=== PATIENT | male | born 1940 | race Caucasian/White ===

== ENCOUNTER → 2016-10-24 | Outpatient (CLI) | payer MEDICARE ==
--- NOTE | 2016-10-25 07:30 | XR ---
EXAMINATION TYPE: XR foot complete RT DATE OF EXAM: 10/24/2016 11:29 AM CLINICAL HISTORY: pain TECHNIQUE: Frontal, lateral and oblique images of the right foot are obtained. COMPARISON: None. FINDINGS: There is no acute fracture/dislocation evident. The joint spaces appear within normal funez its. There is evidence of dorsal soft tissue swelling. IMPRESSION: There is no acute fracture or dislocation. ICD 10 NO FRACTURE, INITIAL EVALUATION
== END | disposition home or self-care (01) ==
LOC: RADXRYALE 10:18
PROVIDERS: ATTEND Family Medicine
DX: S91.331A Puncture wound without foreign body, right foot, initial encounter (principal)

== ENCOUNTER → 2017-06-26 | Outpatient (CLI) | payer MEDICARE ==
--- NOTE | 2017-06-26 16:14 | XR ---
EXAMINATION TYPE: XR ribs RT w pa chest x-ray DATE OF EXAM: 06/26/2017 CLINICAL HISTORY: Chest and right-sided rib pain after injury. TECHNIQUE: Single frontal view of the chest is obtained. A frontal and oblique images of the right-si ded ribs are obtained. COMPARISON: Chest x-ray February 10, 2015 FINDINGS: There is chronic parenchymal change without suspicious focal air space opacity, pleural ef fusion, or pneumothorax seen. The cardiac silhouette size remains within normal limits with atherosc lerotic change in aortic knob. Anterior fusion plate lower cervical spine and cervical cage are parti ally imaged. Dedicated images of right-sided ribs show no acute displaced right-sided rib fracture. Overlying soft tissue is unremarkable. IMPRESSION: 1. Chronic parenchymal changes without acute pulmonary process. 2. No acute displaced right-sided rib fractures are evident.
== END ==
LOC: RADXRYALE 15:55
PROVIDERS: ATTEND Family Medicine
DX: S23.41XA Sprain of ribs, initial encounter (principal)

== ENCOUNTER → 2019-03-17 | Outpatient (CLI) | payer MEDICARE ==
--- NOTE | 2019-03-17 11:28 | XR ---
EXAMINATION TYPE: XR lumbosacral spine min 4V DATE OF EXAM: 03/17/2019 COMPARISON: 02/15/2012 HISTORY: 79-year-old male low back pain TECHNIQUE: 5 views FINDINGS: Hypertrophic facet arthropathy mid to lower lumbar spine. No pars interarticularis defect. Dense atherosclerotic calcification throughout the aorta. 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 Vertebral body heights are preserved and alignment is maintained. Mild to moderate endplate spondylos is throughout. IMPRESSION: 1. Dense atherosclerotic aortic calcifications. 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 2. Hypertrophic facet arthropathy. No vertebral compression collapse or malalignment. 3. Mild to moderate endplate spondylosis throughout.
== END | disposition home or self-care (01) ==
LOC: RADXRYALE 10:47
PROVIDERS: ATTEND Physician Assistant Medical
DX: M47.817 Spondylosis without myelopathy or radiculopathy, lumbosacral region (principal); M46.97 Unspecified inflammatory spondylopathy, lumbosacral region
CPT/HCPCS: 72110

== ENCOUNTER 2020-03-03 16:22 | Emergency (ER) | payer MEDICARE ==
[2020-03-03 16:28] VITALS: RESP 18; TEMP 97.7
[2020-03-03 17:07] LABS: Basophils % (A) 1 %; Eosinophils # (A) 0.1 k/uL (0-0.7); Eosinophils % (A) 2 %; HCT 42.6 % (39.0-53.0); HGB 13.6 gm/dL (13.0-17.5); Lymphocytes # (A) 1.1 k/uL (1.0-4.8); Lymphocytes % (A) 25 %; MCH 25.6 pg (25.0-35.0); MCV 80.1 fL (80.0-100.0); Mean Platelet Volume 9.4; Monocytes # (A) 0.4 k/uL (0-1.0); Monocytes % (A) 9 %; Neutrophils # (A) 2.6 k/uL (1.3-7.7); Neutrophils % (A) 61 %; Platelet Count 138 k/uL (150-450); RBC 5.32 m/uL (4.30-5.90); RDW 14.8 % (11.5-15.5); WBC 4.2 k/uL (3.8-10.6)
[2020-03-03 17:18] LABS: Albumin 4.3 g/dL (3.5-5.0); Calcium 9.3 mg/dL (8.4-10.2); INR 1.1 (<1.2); Magnesium 2.3 mg/dL (1.6-2.3); Partial Thromboplastin Time 25.9 sec (22.0-30.0); Potassium 4.9 mmol/L (3.5-5.1); Prothrombin Time 11.2 sec (9.0-12.0); Total Bilirubin 0.8 mg/dL (0.2-1.3); Total Protein 7.1 g/dL (6.3-8.2)
--- NOTE | 2020-03-03 17:27 | XR ---
EXAMINATION TYPE: XR chest 2V DATE OF EXAM: 03/03/2020 COMPARISON: Chest x-ray June 26, 2017 HISTORY: Chest pain and palpitations for 2 days TECHNIQUE: Frontal and lateral views of the chest are obtained. FINDINGS: There is chronic parenchymal changes bilaterally without suspicious focal air space opacit y, pleural effusion, or pneumothorax seen. The cardiac silhouette size is mildly enlarged on current study with atherosclerotic thoracic aorta. Partial visualization of surgical change in the cervical spine noted.. IMPRESSION: Chronic parenchymal changes and cardiomegaly without acute pulmonary process.
[2020-03-03] MEDS ORDERED: NITROGLYCERIN SL TABS 0.4 MG TAB SUBLINGUAL STA (17:48)
--- NOTE | 2020-03-03 18:44 | ED ---
Chest Pain HPI - General Chief Complaint: Chest Pain Stated Complaint: chest pain Time Seen by Provider: 03/03/20 16:38 Source: patient Mode of arrival: wheelchair Limitations: no limitations - History of Present Illness Initial Comments: The patient is a 80-year-old male with past nuchal history of coronary artery disease, hyperlipidemia and hypertension presents emergency Department with reported chest pain. Reports that the pain has been present for the past 2 days. It is not reproducible over the left side of the chest without radiation. Denies provocative factors. Mild associated shortness of breath. No nausea or diaphoresis. Patient reports that his last cath was 6 years ago[address] He sees Dr. Valdez in office. Has a history of A. fib for which she is on Eliquis. Denies missing any doses of his medication. Denies pleuritic chest pain. No ripping or tearing sensation to his back. No fevers, chills or cough. She did not take any medications for his symptoms prior to coming into the emergency room. There are no alleviating, precipitating or modifying factors - Related Data Home Medications Medication Instructions Recorded Confirmed Nitroglycerin Sl Tabs [Nitrostat] 0.4 mg SL Q5M PRN 04/08/14 09/06/15 levETIRAcetam [Keppra] 750 mg PO BID 04/08/14 09/03/15 HYDROcodone/APAP 7.5-325MG [[place] 1 each PO Q6HR PRN 04/09/14 09/03/15 7.5-325] Metoprolol Tartrate [Lopressor] 25 mg PO BID 04/09/14 09/03/15 Eszopiclone [Lunesta] 2 mg PO HS 09/03/15 09/03/15 Sulfamethox-Tmp 800-160Mg [Bactrim 1 tab PO BID 09/03/15 09/03/15 DS 800-160 mg] Previous Rx's Medication Instructions Recorded Apixaban [Eliquis] 5 mg PO BID #1 tab 02/12/15 Atorvastatin Calcium [Lipitor] 40 mg PO HS #30 tab 02/12/15 Amoxicillin/Potassium Clav 1 each PO Q12HR #20 tab 08/31/15 [Augmentin 875-125 Tablet] HYDROcodone/APAP 7.5-325MG [[place] 1 each PO Q4H PRN #60 tab 09/06/15 7.5] Allergies Allergy/AdvReac Type Severity Reaction Status Date / Time lorazepam [From Ativan] Allergy Confusion Verified 03/03/20 16:28 hydromorphone HCl AdvReac Nausea & Verified 03/03/20 16:28 [From Dilaudid] Vomiting Review of Systems ROS Statement: Those systems with pertinent positive or pertinent negative responses have been documented in the HPI. ROS Other: All systems not noted in ROS Statement are negative. EKG Findings - EKG Comments: EKG Findings:: EKG demonstrates A. fib with a rate of 75. QRS 72. QTC of 426. No acute ST segment elevations or depressions concern for ischemic changes Past Medical History Past Medical History: Coronary Artery Disease (CAD), Hyperlipidemia, Hypertension, Memory Impairment, Myocardial Infarction ([place]), Neurologic Disorder, Seizure Disorder Additional Past Medical History / Comment(s): LAST SEIZURE COUPLE MONTHS AGO, RIGHT GROIN HERNIA, CELLULITIS Last Myocardial Infarction Date:: 2010 History of Any Multi-Drug Resistant Organisms: None Reported Past Surgical History: Appendectomy, Heart Catheterization With Stent Additional Past Surgical History / Comment(s): cervical disc replacement, Past Anesthesia/Blood Transfusion Reactions: No Reported Reaction Date of Last Stent Placement:: 2010 Past Psychological History: No Psychological Hx Reported Smoking Status: Former smoker Past Alcohol Use History: None Reported Past Drug Use History: None Reported - Past Family History Father Family Medical History: Coronary Artery Disease (CAD) General Exam Limitations: no limitations Course Vital Signs 03/03/20 03/03/20 03/03/20 16:26 17:53 19:17 Temperature 97.7 F Pulse Rate 74 77 70 Respiratory 18 18 18 Rate Blood Pressure 157/79 165/92 167/85 O2 Sat by Pulse 98 99 99 Oximetry Chest Pain MDM - MDM Upon return of the patient was placed into room 7. A thorough history and physical exam was performed. 12-lead EKG was performed which demonstrates no acute ST segment elevation. Peripheral IV was established. Laboratory studies were conducted. Patient went for chest x-ray. Labs are remarkable for c reatinine 1.6 which is from the patient's baseline. Troponin is negative. BNP is 1230. Chest x-ray demonstrates chronic parenchymal changes with cardiomegaly. The patient was given a sublingual nitro. Reports improvement in his symptoms. I hospital admission for which patient did refuse. I discuss the diagnosis, differential and treatment options. The bleeding including permanent disability and were discussed with the patient. The patient is of sound mind and capable of making his own decisions. is at bedside and agrees with his decision to leave. I informed him and he said call his her care physician in follow-up in office. He should also see Dr. Valdez within the next week. Return to the emergency room and should he agree for further evaluation. The patient understood this and left in stable condition Disposition Clinical Impression: Chest pain Disposition: HOME SELF-CARE Condition: Stable Instructions (If sedation given, give patient instructions): Chest Pain (ED) Additional Instructions: I recommended hospital admission. You understand that leaving the hospital could result in permanent disability and even . I do recommend that you follow up with your dental floss packer. Call tomorrow to make an appointment. Return to the hospital should you have any new or worsening symptoms or agree to hospitalization. Is patient prescribed a controlled substance at d/c from ED?: No Referrals: Faisal Anaya DO [Primary Care Provider] - 1-2 days Alejandrina Valdez MD [STAFF PHYSICIAN] - 1-2 days Time of Disposition: 18:54
[2020-03-03 19:18] VITALS: BP 167/85; PULSE 70
== END 2020-03-03 19:17 | disposition home or self-care (01) ==
LOC: EC 16:22
DX: R07.9 Chest pain, unspecified (principal); R06.02 Shortness of breath; I11.9 Hypertensive heart disease without heart failure; I25.10 Atherosclerotic heart disease of native coronary artery without angina pectoris; G40.909 Epilepsy, unspecified, not intractable, without status epilepticus; I25.2 Old myocardial infarction; Z79.899 Other long term (current) drug therapy; Z88.5 Allergy status to narcotic agent; Z88.8 Allergy status to other drugs, medicaments and biological substances; Z95.5 Presence of coronary angioplasty implant and graft; Z87.891 Personal history of nicotine dependence
CPT/HCPCS: 36415; 71046; 80053; 83690; 83735; 83880; 84484; 85025; 85610; 85730; 93005; 99285

== ENCOUNTER 2021-01-19 17:57 | Inpatient (IN) | payer MEDICARE ==
--- NOTE | 2021-01-19 19:52 | ED ---
General Adult HPI - General Chief complaint: Extremity Problem,Nontraumatic Stated complaint: +DVT Time Seen by Provider: 01/19/21 19:14 Source: patient Mode of arrival: wheelchair Limitations: no limitations - History of Present Illness Initial comments: Dictation was produced using [employer] dictation software. please excuse any grammatical, word or spelling errors. This patient was cared for during a federal and state declared state of emergenc y secondary to Covid 19 Chief Complaint: 80-year-old male presents to the emergency department for abnormal ultrasound History of Present Illness: 80-year-old male who presents to the emergency department after he had an abnormal ultrasound. Patient is 80-year-old male he has past medical history of atrial fibrillation. Does take eliquis. States he is compliant with this medication. The last 2 weeks she's been complaining of bilateral calf pain. Denies any trauma to the area. So for stroke several years ago that made it difficult for him to ambulate. He went to see his prima care doctor who ordered a bilateral lower extremity venous Doppler study. Ultrasounds were positive for bilateral lower extremity DVTs. He was told to come to the emergency department. Patient denies any chest pain or shortness of breath. Denies any exertional dyspnea. He states that all of his pain is located to his bilateral calf areas. The ROS documented in this emergency department record has been reviewed and confirmed by me. Those systems with pertinent positive or negative responses have been documented in the HPI. All other systems are other negative and/or noncontributory. PHYSICAL EXAM: General Impression: Alert and oriented x3, not in acute distress HEENT: Normocephalic atraumatic, extra-ocular movements intact, pupils equal and reactive to light bilaterally, mucous membranes moist. Cardiovascular: Heart regular rate and rhythm Chest: Able to complete full sentences, no retractions, no tachypnea Abdomen: abdomen soft, non-tender, non-distended, no organomegaly Musculoskeletal: Pulses present and equal in all extremities, no peripheral edema Lower extremity: Some equal in girth however there is bilateral calf and popliteal palpatory tenderness Motor: no focal deficits noted Neurological: CN II-XII grossly intact, no focal motor or sensory deficits noted Skin: Intact with no visualized rashes Psych: Normal affect and mood ED course: 80-year-old male presents with bilateral lower extremities DVTs. Vital signs upon arrival are within acceptable limits. Patient is not tachycardic and not hypoxic. He does not show any signs of respiratory distress. Patient denies any respiratory symptoms or chest symptoms. No concern clinically for pulmonary embolism. Patient venous Doppler studies were reviewed. Does have bilateral lower she may DVTs. Patient states he is taking apixiban and is compliant with his medication. Clinical presentation consistent with breakthrough DVTs Laboratory evaluations were obtained. CBC, coag panel is unremarkable. Metabolic panel shows elevated renal markers which appear to be slightly on the higher end of patient's baseline. Radiology interpretation of the ultrasounds were reviewed. Given that patient is having breakthrough DVT formation despite being on anticoagulation we'll have patient admitted for hematology consultation. Case is discussed with Izabel Gallagher was went except patient's Behalf of [facility] hospitalist group. Hematology will be consulted. In the meantime patient is started on high-dose heparin. - Related Data Home Medications Medication Instructions Recorded Confirmed Nitroglycerin Sl Tabs [Nitrostat] 0.4 mg SL Q5M PRN 04/08/14 09/06/15 levETIRAcetam [Keppra] 750 mg PO BID 04/08/14 09/03/15 HYDROcodone/APAP 7.5-325MG [[place] 1 each PO Q6HR PRN 04/09/14 09/03/15 7.5-325] Metoprolol Tartrate [Lopressor] 25 mg PO BID 04/09/14 09/03/15 Eszopiclone [Lunesta] 2 mg PO HS 09/03/15 09/03/15 Sulfamethox-Tmp 800-160Mg [Bactrim 1 tab PO BID 09/03/15 09/03/15 DS 800-160 mg] Previous Rx's Medication Instructions Recorded Apixaban [Eliquis] 5 mg PO BID #1 tab 02/12/15 Atorvastatin Calcium [Lipitor] 40 mg PO HS #30 tab 02/12/15 Amoxicillin/Potassium Clav 1 each PO Q12HR #20 tab 08/31/15 [Augmentin 875-125 Tablet] HYDROcodone/APAP 7.5-325MG [[place] 1 each PO Q4H PRN #60 tab 09/06/15 7.5] Allergies Allergy/AdvReac Type Severity Reaction Status Date / Time lorazepam [From Ativan] Allergy Confusion Verified 01/19/21 18:30 hydromorphone HCl AdvReac Nausea & Verified 01/19/21 18:30 [From Dilaudid] Vomiting Review of Systems ROS Statement: Those systems with pertinent positive or pertinent negative responses have been documented in the HPI. ROS Other: All systems not noted in ROS Statement are negative. Past Medical History Past Medical History: Coronary Artery Disease (CAD), CVA/TIA, Hyperlipidemia, Hy pertension, Memory Impairment, Myocardial Infarction ([place]), Neurologic Disorder, Seizure Disorder Additional Past Medical History / Comment(s): LAST SEIZURE COUPLE MONTHS AGO, RIGHT GROIN HERNIA, CELLULITIS Last Myocardial Infarction Date:: 2010 History of Any Multi-Drug Resistant Organisms: None Reported Past Surgical History: Appendectomy, Heart Catheterization With Stent Additional Past Surgical History / Comment(s): cervical disc replacement, Past Anesthesia/Blood Transfusion Reactions: No Reported Reaction Date of Last Stent Placement:: 2010 Past Psychological History: No Psychological Hx Reported Smoking Status: Never smoker Past Alcohol Use History: None Reported Past Drug Use History: None Reported - Past Family History Father Family Medical History: Coronary Artery Disease (CAD) General Exam Limitations: no limitations Course Vital Signs 01/19/21 18:26 Temperature 98.1 F Pulse Rate 85 Respiratory 18 Rate Blood Pressure 141/77 O2 Sat by Pulse 96 Oximetry Medical Decision Making - Lab Data Result diagrams: 01/19/21 20:02 01/19/21 20:02 Lab Results 01/19/21 01/19/21 01/19/21 Range/Units 20:02 20:02 20:02 WBC 5.9 (3.8-10.6) k/uL RBC 5.05 (4.30-5.90) m/uL Hgb 13.5 (13.0-17.5) gm/dL Hct 39.9 (39.0-53.0) % MCV 79.0 L (80.0-100.0) fL MCH 26.8 (25.0-35.0) pg MCHC 33.9 (31.0-37.0) g/dL RDW 13.8 (11.5-15.5) % Plt Count 178 (150-450) k/uL MPV 9.9 Neutrophils % 72 % Lymphocytes % 15 % Monocytes % 9 % Eosinophils % 1 % Basophils % 1 % Neutrophils # 4.3 (1.3-7.7) k/uL Lymphocytes # 0.9 L (1.0-4.8) k/uL Monocytes # 0.6 (0-1.0) k/uL Eosinophils # 0.1 (0-0.7) k/uL Basophils # 0.0 (0-0.2) k/uL PT 11.1 (9.0-12.0) sec INR 1.0 (<1.2) APTT 23.7 (22.0-30.0) sec Sodium 136 L (137-145) mmol/L Potassium 5.0 (3.5-5.1) mmol/L Chloride 101 (98-107) mmol/L Carbon Dioxide 28 (22-30) mmol/L Anion Gap 7 mmol/L BUN 31 H (9-20) mg/dL Creatinine 1.95 H (0.66-1.25) mg/dL Est GFR (CKD-EPI)AfAm 37 (>60 ml/min/1.73 sqM) Est GFR (CKD-EPI)NonAf 32 (>60 ml/min/1.73 sqM) Glucose 134 H (74-99) mg/dL Calcium 9.6 (8.4-10.2) mg/dL Disposition Clinical Impression: DVT (deep venous thrombosis) Disposition: ADMITTED IP TO THIS HOSP Condition: Fair Referrals: Faisal Anaya DO [Primary Care Provider] - 1-2 days Decision Time: 21:04
[2021-01-19 20:15] LABS: Basophils % (A) 1 %; Eosinophils # (A) 0.1 k/uL (0-0.7); Eosinophils % (A) 1 %; HCT 39.9 % (39.0-53.0); HGB 13.5 gm/dL (13.0-17.5); Lymphocytes # (A) 0.9 k/uL (1.0-4.8); Lymphocytes % (A) 15 %; MCH 26.8 pg (25.0-35.0); MCHC 33.9 g/dL (31.0-37.0); Mean Platelet Volume 9.9; Monocytes # (A) 0.6 k/uL (0-1.0); Monocytes % (A) 9 %; Neutrophils # (A) 4.3 k/uL (1.3-7.7); Neutrophils % (A) 72 %; Platelet Count 178 k/uL (150-450); RBC 5.05 m/uL (4.30-5.90); RDW 13.8 % (11.5-15.5); WBC 5.9 k/uL (3.8-10.6)
[2021-01-19 20:26] LABS: Calcium 9.6 mg/dL (8.4-10.2)
[2021-01-19 20:34] LABS: Partial Thromboplastin Time 23.7 sec (22.0-30.0); Prothrombin Time 11.1 sec (9.0-12.0)
[2021-01-19] MEDS ORDERED: HEPARIN SODIUM 1,000 UN/ML (10ML VL) IV ONE (20:47)
[2021-01-19] MEDS ORDERED: HEPARIN SODIUM 1,000 UN/ML (10ML VL) IV PRN (20:47)
[2021-01-19] MEDS ORDERED: NALOXONE 0.4 MG/ML 1 ML VIAL IV PRN (20:56)
[2021-01-19] MEDS ORDERED: ACETAMINOPHEN TAB 325 MG TAB PO PRN (20:56)
[2021-01-19] MEDS ORDERED: HYDROcodone/APAP 5-325MG 1 EACH TAB PO PRN (21:05)
[2021-01-19] MEDS: HEPARIN SOD,PORK IN 0.45% NACL 25,000 UNIT in 0.45% NACL 1 250ML.BAG IV SCH (21:13)
[2021-01-20] MEDS ORDERED: traMADol 50 MG TAB PO PRN (10:19)
[2021-01-20] MEDS: METOPROLOL TARTRATE 25 MG TAB PO SCH ×2 (10:34→21:38)
[2021-01-20] MEDS: HEPARIN SOD,PORK IN 0.45% NACL 25,000 UNIT in 0.45% NACL 1 250ML.BAG IV SCH (13:32)
--- NOTE | 2021-01-20 14:38 | P.CONS ---
History of Present Illness - Reason for Consult Consult date: 01/20/21 DVT Requesting physician: Jose Luis Celaya - Chief Complaint Abnormal Ultrasound - History of Present Illness Mr. Champagne is a 80 year old male who has a known history of atrial fib and maintained on Eliquis. He confirms compliance with this medication. He was sent to emergency for further evaluation after a venous doppler revealed bilateral lower extremity DVTs. COVID-19 positive. Heparin Drip has been started. Trending of his renal function he appears to have some chronic kidney disease and his baseline creatinine of around 1.6. Creatinine clearance is greater than 30, likely need to remain on anticoagulation (failure to DOAC), most likely result with use of lovenox. 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 I spoke to Charley this afternoon and she confirmed Eliquis 5mg BID was his home dosage. Patient and his state he was taking daily, however Charley states she has been lo oking for the pill bottle at their house and has not been able to find it and neither her mother or father know where it is, thereforefore potential he has been nonintentionally missing this at home. He did receive the vaccination one Pfzeizer on 12/19/20 and was due for second next week, however now having positive COVID infection he has been advised to hold off on receiving that. After further discussion with patients daughter, she could not find the patients eliquis pills he stated he was taking daily, she called [facility] and [facility] confirmed this was last filled August (3 month supply) and was not refilled in November due to insufficient payment, therefore the patient was likely NOT taking eliquis at home and may resume on eliquis at discharge Review of Systems All systems: negative Constitutional: Reports as per HPI Past Medical History Past Medical History: Atrial Fibrillation, Coronary Artery Disease (CAD), CVA/TIA, Hyperlipidemia, Hypertension, Memory Impairment, Myocardial Infarction ([place]), Neurologic Disorder, Seizure Disorder Additional Past Medical History / Comment(s): LAST SEIZURE 2018, RIGHT GROIN HERNIA, CELLULITIS Last Myocardial Infarction Date:: 2010 History of Any Multi-Drug Resistant Organisms: None Reported Past Surgical History: Appendectomy, Heart Catheterization With Stent Additional Past Surgical History / Comment(s): cervical disc replacement Past Anesthesia/Blood Transfusion Reactions: No Reported Reaction Date of Last Stent Placement:: 2010 Past Psychological History: No Psychological Hx Reported Smoking Status: Never smoker Past Alcohol Use History: None Reported Past Drug Use History: None Reported - Past Family History Father Family Medical History: Coronary Artery Disease (CAD) Medications and Allergies Home Medications Medication Instructions Recorded Confirmed Type Nitroglycerin Sl Tabs [Nitrostat] 0.4 mg SL Q5M PRN 04/08/14 01/20/21 History levETIRAcetam [Keppra] 750 mg PO BID 04/08/14 01/20/21 History Apixaban [Eliquis] 5 mg PO BID #1 tab 02/12/15 01/20/21 Rx Atorvastatin Calcium [Lipitor] 20 mg PO HS 01/19/21 01/20/21 History Metoprolol Tartrate [Lopressor] 25 mg PO BID 01/19/21 01/20/21 History QUEtiapine [SEROquel] 100 mg PO HS 01/19/21 01/20/21 History Tamsulosin HCl [Flomax] 0.8 mg PO HS 01/19/21 01/20/21 History amLODIPine [Norvasc] 5 mg PO DAILY 01/19/21 01/20/21 History traMADol HCL [Ultram] 50 mg PO TID PRN 01/19/21 01/20/21 History Allergies Allergy/AdvReac Type Severity Reaction Status Date / Time lorazepam [From Ativan] Allergy Confusion Verified 01/19/21 21:13 hydromorphone HCl AdvReac Nausea & Verified 01/19/21 21:13 [From Dilaudid] Vomiting Physical Exam Vitals: Vital Signs Temp Pulse Resp BP Pulse Ox 01/20/21 07:55 18 01/20/21 06:51 98 F 74 18 170/76 99 01/19/21 22:09 18 01/19/21 21:38 97.9 F 82 18 168/83 97 01/19/21 18:26 98.1 F 85 18 141/77 96 Intake and Output 01/19/21 01/20/21 01/20/21 22:59 06:59 14:59 Intake Total 110.918 Balance 110.918 Intake: Intake, IV Titration 110.918 Amount Heparin Sod,Pork in 0.45% 110.918 NaCl 25,000 unit In 0.45 % NaCl 1 250ml.bag @ 18 UNITS/KG/HR 15.513 mls/hr IV .Q16H7M [facility] Rx#: [id number] Other: Weight 86.183 kg 86.183 kg - Constitutional Expressive Aphasia - EENT Eyes: EOMI ENT: hard of hearing, NA/AT - Neck Neck: normal ROM - Respiratory Respiratory: bilateral: CTA - Cardiovascular Rhythm: irregularly irregular leg Peripheral Edema: bilateral: 2+ - Gastrointestinal General gastrointestinal: soft - Integumentary Integumentary: pale - Musculoskeletal Musculoskeletal: generalized weakness - Psychiatric History of CVA with chronic deficits Results CBC & Chem 7: 01/19/21 20:02 01/19/21 20:02 Labs: Abnormal Lab Results - Last 24 Hours (Table) 01/19/21 01/19/21 01/19/21 Range/Units 20:02 20:02 21:33 MCV 79.0 L (80.0-100.0) fL Lymphocytes # 0.9 L (1.0-4.8) k/uL APTT (22.0-30.0) sec Sodium 136 L (137-145) mmol/L BUN 31 H (9-20) mg/dL Creatinine 1.95 H (0.66-1.25) mg/dL Glucose 134 H (74-99) mg/dL Coronavirus (PCR) Detected A (Not Detectd) 01/20/21 Range/Units 03:30 MCV (80.0-100.0) fL Lymphocytes # (1.0-4.8) k/uL APTT 118.1 H* (22.0-30.0) sec Sodium (137-145) mmol/L BUN (9-20) mg/dL Creatinine (0.66-1.25) mg/dL Glucose (74-99) mg/dL Coronavirus (PCR) (Not Detectd) Venous US: report reviewed Assessment and Plan Plan: Assessment and Recommendations: Acute BLE DVTs: - Apparently while on Eliquis 5mg BID and while compliant to this at home, After further discussion with patients daughter, she could not find the patients eliquis pills he stated he was taking daily, she called [facility] and [facility] confirmed this was last filled August (3 month supply) and was not refilled in November due to insufficient payment, therefore the patient was likely NOT taking eliquis at home and may resume on eliquis at discharge - Heparin drip for now and restart Eliquis nd confirm prescription in hand prior to discharge Physician Attest: I have completed the full history and physical and agree with above dictation, dictated as a ascribe.
[2021-01-20] MEDS ORDERED: ATORVASTATIN 20 MG TAB PO SCH (21:00)
[2021-01-20] MEDS ORDERED: TAMSULOSIN 0.4 MG CAP.ER.24H PO SCH (21:00)
[2021-01-20] MEDS ORDERED: QUEtiapine 100 MG TAB PO SCH (21:00)
--- NOTE | 2021-01-20 22:27 | P.HPIM ---
History of Present Illness H&P Date: 01/20/21 Chief Complaint: Lower extremity DVTs/abnormal ultrasound Patient is a 80-year-old male with a known history of proximal atrial fibrillation on anticoagulation with Eliquis, coronary artery disease with history of stent placement, history of CVA/TIA with expressive aphasia, hypertension, hyperlipidemia, memory impairment, history of RI, history of seizure disorder was sent to hospital due to abdominal lower extremity venous duplex scan showed bilateral DVTs. Patient does take Eliquis and is compliant with his medications. Patient states that he has been having bilateral calf pain for the past 2 weeks. Denies any trauma.. Patient was seen by his primary care physician and bilateral lower extremity duplex ultrasound was ordered. Which is positive for bilateral lower extremity DVTs. Patient was sent to hospital for evaluation. Otherwise patient denied any complaints of chest pain. No complaints of shortness of breath. Patient received [employer] COVID-19 vaccination first dose on 12/19/2020 and is due for second dose. Patient is positive for COVID-19 PCR on 01/19/2021 Laboratory data showed WBC 5.9 hemoglobin 13.5 MCV 79.0 and platelets 178 sodium 136 potassium 5.0 BUN 31 and creatinine 1.95 Patient was started heparin drip. Review of Systems Constitutional: Patient denies any fever or chills . No generalized weakness or weight loss. Abdomen: Patient denied nausea vomiting and diarrhea and abdominal pain. Cardiovascular: Patient denies any chest pain or short of breath no palpitations. Respiratory: patient denied any cough or sputum production. No shortness of breath Neurologic: Patient denied any numbness or tingling headache. Musculoskeletal: Patient denies any complaints of joint swelling or deformity. Bilateral lower extremity calf pain Skin: Negative Psychiatric: Negative Endocrine: No heat or cold intolerance. No recent weight gain. Genitourinary: No dysuria or hematuria. All other 14 point ROS negative except the above Past Medical History Past Medical History: Atrial Fibrillation, Coronary Artery Disease (CAD), CVA/TIA, Hyperlipidemia, Hypertension, Memory Impairment, Myocardial Infarction (RI), Neurologic Disorder, Seizure Disorder Additional Past Medical History / Comment(s): LAST SEIZURE 2019, RIGHT GROIN HERNIA, CELLULITIS Last Myocardial Infarction Date:: 2010 History of Any Multi-Drug Resistant Organisms: None Reported Past Surgical History: Appendectomy, Heart Catheterization With Stent Additional Past Surgical History / Comment(s): cervical disc replacement Past Anesthesia/Blood Transfusion Reactions: No Reported Reaction Date of Last Stent Placement:: 2010 Past Psychological History: No Psychological Hx Reported Smoking Status: Never smoker Past Alcohol Use History: None Reported Past Drug Use History: None Reported - Past Family History Father Family Medical History: Coronary Artery Disease (CAD) Medications and Allergies Home Medications Medication Instructions Recorded Confirmed Type Nitroglycerin Sl Tabs [Nitrostat] 0.4 mg SL Q5M PRN 04/08/14 01/20/21 History levETIRAcetam [Keppra] 750 mg PO BID 04/08/14 01/20/21 History Apixaban [Eliquis] 5 mg PO BID #1 tab 02/12/15 01/20/21 Rx Atorvastatin Calcium [Lipitor] 20 mg PO HS 01/19/21 01/20/21 History Metoprolol Tartrate [Lopressor] 25 mg PO BID 01/19/21 01/20/21 History QUEtiapine [SEROquel] 100 mg PO HS 01/19/21 01/20/21 History Tamsulosin HCl [Flomax] 0.8 mg PO HS 01/19/21 01/20/21 History amLODIPine [Norvasc] 5 mg PO DAILY 01/19/21 01/20/21 History traMADol HCL [Ultram] 50 mg PO TID PRN 01/19/21 01/20/21 History Allergies Allergy/AdvReac Type Severity Reaction Status Date / Time lorazepam [From Ativan] Allergy Confusion Verified 01/19/21 21:13 hydromorphone HCl AdvReac Nausea & Verified 01/19/21 21:13 [From Dilaudid] Vomiting Physical Exam Vitals: Vital Signs Temp Pulse Pulse Resp BP BP Pulse Ox 01/20/21 10:15 96.1 F L 102 H 18 184/92 98 01/20/21 07:55 18 01/20/21 06:51 98 F 74 18 170/76 99 01/19/21 22:09 18 01/19/21 21:38 97.9 F 82 18 168/83 97 01/19/21 18:26 98.1 F 85 18 141/77 96 Intake and Output 01/19/21 01/20/21 01/20/21 22:59 06:59 14:59 Intake Total 110.918 Balance 110.918 Intake: Intake, IV Titration 110.918 Amount Heparin Sod,Pork in 0.45% 110.918 NaCl 25,000 unit In 0.45 % NaCl 1 250ml.bag @ 18 UNITS/KG/HR 15.513 mls/hr IV .Q16H7M [facility] Rx#: [id number] Other: Weight 86.183 kg 86.183 kg PHYSICAL EXAMINATION: Patient is lying in the bed comfortably, no acute distress, awake alert and oriented.. HEENT: Normocephalic. Neck is supple. Pupils reactive. Nostrils clear. Oral cavity is moist. Ears reveal no drainage. Neck reveals no JVD, carotid bruits, or thyromegaly. CHEST EXAMINATION: Trachea is central. Symmetrical expansion. Lung hopson clear to auscultation and percussion. CARDIAC: Normal S1, S2 with no gallops. No murmurs ABDOMEN: Soft. Bowel sounds normal. No organomegaly. No abdominal bruits. Extremities: reveal no edema. No clubbing or cyanosis. Calf tenderness. Neurologically awake, alert, oriented x3 with well-coordinated movements. Expressive aphasia. Skin: No rash or skin lesions. Psychiatric: Coperative. Nonsuicidal Musculoskeletal: No joint swelling or deformity. Normal range of motion. Results CBC & Chem 7: 01/19/21 20:02 01/19/21 20:02 Labs: Abnormal Lab Results - Last 24 Hours (Table) 01/19/21 01/19/21 01/19/21 Range/Units 20:02 20:02 21:33 MCV 79.0 L (80.0-100.0) fL Lymphocytes # 0.9 L (1.0-4.8) k/uL APTT (22.0-30.0) sec Sodium 136 L (137-145) mmol/L BUN 31 H (9-20) mg/dL Creatinine 1.95 H (0.66-1.25) mg/dL Glucose 134 H (74-99) mg/dL Coronavirus (PCR) Detected A (Not Detectd) 01/20/21 Range/Units 03:30 MCV (80.0-100.0) fL Lymphocytes # (1.0-4.8) k/uL APTT 118.1 H* (22.0-30.0) sec Sodium (137-145) mmol/L BUN (9-20) mg/dL Creatinine (0.66-1.25) mg/dL Glucose (74-99) mg/dL Coronavirus (PCR) (Not Detectd) Thrombosis Risk Factor Assmnt - DVT/VTE Prophylaxis DVT/VTE Prophylaxis: Pharmacologic Prophylaxis ordered - Choose All That Apply Each Factor Represents 1 point: Swollen legs (current) Each Risk Factor Represents 3 Points: Age 75 years or older, History of DVT/PE Thrombosis Risk Factor Assessment Total Risk Factor Score: 7 Thrombosis Risk Factor Assessment Level: High Risk Assessment and Plan Assessment: Bilateral acute lower extremity DVT Acute COVID-19 infection Patient received Pfizer vaccine first dose and is due for second dose. Acute kidney injury resolved possible CKD stage III creatinine 1.95 Paroxysmal atrial fibrillation on anticoagulation with Eliquis Coronary artery disease history of stent placement Hypertension Hyperlipidemia History of pseudogout History of CVA/TIA with expressive aphasia DVT prophylaxis patient is on heparin drip Plan: Patient will be continued on heparin drip. Bilateral lower extremity calf pain is better today. No complaints of chest pain or shortness of breath. Patient was seen by oncology. Verified with pharmacy. Apparently patient has not been taking his Eliquis dose since November 2020. Last filled in August. Patient was started back on Eliquis. Oncology/hematology is on board. Continue with home medications and further recommendations based on clinical course. Continue with contact and droplet precautions. Time with Patient: Greater than 30
[2021-01-21] MEDS: HEPARIN SOD,PORK IN 0.45% NACL 25,000 UNIT in 0.45% NACL 1 250ML.BAG IV SCH (07:25)
[2021-01-21] MEDS: METOPROLOL TARTRATE 25 MG TAB PO SCH (07:51)
[2021-01-21] MEDS ORDERED: amLODIPine 5 MG TAB PO SCH (09:00)
[2021-01-21 09:07] VITALS: BP 122/73; PULSE 75; RESP 16; TEMP 96.6
[2021-01-21 09:36] LABS: Basophils % (A) 1 %; Eosinophils # (A) 0.1 k/uL (0-0.7); Eosinophils % (A) 2 %; HCT 37.5 % (39.0-53.0); HGB 12.5 gm/dL (13.0-17.5); Lymphocytes # (A) 0.7 k/uL (1.0-4.8); Lymphocytes % (A) 17 %; MCH 26.7 pg (25.0-35.0); MCHC 33.4 g/dL (31.0-37.0); Mean Platelet Volume 9.2; Monocytes # (A) 0.4 k/uL (0-1.0); Monocytes % (A) 8 %; Neutrophils # (A) 3.1 k/uL (1.3-7.7); Neutrophils % (A) 72 %; Platelet Count 183 k/uL (150-450); RBC 4.68 m/uL (4.30-5.90); RDW 13.8 % (11.5-15.5); WBC 4.3 k/uL (3.8-10.6)
[2021-01-21 10:00] LABS: Albumin 3.2 g/dL (3.5-5.0); Potassium 4.8 mmol/L (3.5-5.1); Total Bilirubin 0.9 mg/dL (0.2-1.3); Total Protein 6.1 g/dL (6.3-8.2)
--- NOTE | 2021-01-21 10:35 | P.PN ---
Subjective Progress Note Date: 01/21/21 Principal diagnosis: BLE DVT/COVID It was confirmed that patient was unintentionally not taking his prescribed Eliquis the past 2 months (Evidenced by [facility] confirming it was last filled 90 days in August and was not sent in November due to insufficient payment). With new DVTs, we will restart his eliquis at therpeutic dosing (10mg po bid xx7 days, then continued lifelong 5mg po BID). Re-emphasized the importance of compliance. Discussed with primary team and patient and daughter and . Objective - Vital Signs Vital signs: Vital Signs Temp 96.6 F L 01/21/21 08:00 Pulse 75 01/21/21 08:00 Resp 16 01/21/21 08:00 BP 122/73 01/21/21 08:00 Pulse Ox 97 01/21/21 08:00 Intake & Output 01/20/21 01/21/21 01/21/21 18:59 06:59 18:59 Intake Total 643.590 736 339.558 Balance 643.590 736 339.558 Weight 86.183 kg Intake: IV 60 186 Heparin Sod,Pork in 0.45% 60 186 NaCl 25,000 unit In 0.45 % NaCl 1 250ml.bag @ 18 UNITS/KG/HR 15.513 mls/hr IV .Q16H7M [facility] Rx#: [id number] Intake, IV Titration 103.590 250 39.558 Amount Heparin Sod,Pork in 0.45% 103.590 250 39.558 NaCl 25,000 unit In 0.45 % NaCl 1 250ml.bag @ 18 UNITS/KG/HR 15.513 mls/hr IV .Q16H7M [facility] Rx#: [id number] Oral 480 300 300 Other: # Voids 2 1 - Exam - Constitutional Expressive Aphasia - EENT Eyes: EOMI ENT: hard of hearing, NA/AT - Neck Neck: normal ROM - Respiratory Respiratory: bilateral: CTA - Cardiovascular Rhythm: irregularly irregular leg Peripheral Edema: bilateral: 2+ - Gastrointestinal General gastrointestinal: soft - Integumentary Integumentary: pale - Musculoskeletal Musculoskeletal: generalized weakness - Psychiatric History of CVA with chronic deficits - Labs CBC & Chem 7: 01/21/21 08:47 01/21/21 08:47 Labs: Abnormal Lab Results - Last 24 Hours (Table) 01/20/21 01/20/21 01/21/21 Range/Units 10:21 16:47 08:47 Hgb 12.5 L (13.0-17.5) gm/dL Hct 37.5 L (39.0-53.0) % Lymphocytes # 0.7 L (1.0-4.8) k/uL APTT 41.8 H 54.6 H (22.0-30.0) sec Sodium (137-145) mmol/L BUN (9-20) mg/dL Creatinine (0.66-1.25) mg/dL Glucose (74-99) mg/dL AST (17-59) U/L ALT (4-49) U/L Alkaline Phosphatase (38-126) U/L Total Protein (6.3-8.2) g/dL Albumin (3.5-5.0) g/dL 01/21/21 01/21/21 Range/Units 08:47 08:47 Hgb (13.0-17.5) gm/dL Hct (39.0-53.0) % Lymphocytes # (1.0-4.8) k/uL APTT 70.0 H (22.0-30.0) sec Sodium 135 L (137-145) mmol/L BUN 28 H (9-20) mg/dL Creatinine 1.54 H (0.66-1.25) mg/dL Glucose 156 H (74-99) mg/dL AST 70 H (17-59) U/L ALT 95 H (4-49) U/L Alkaline Phosphatase 128 H (38-126) U/L Total Protein 6.1 L (6.3-8.2) g/dL Albumin 3.2 L (3.5-5.0) g/dL Assessment and Plan Plan: Assessment and Recommendations: Acute BLE DVTs: - Apparently while on Eliquis 5mg BID and while compliant to this at home, After further discussion with patients daughter, she could not find the patients eliquis pills he stated he was taking daily, she called [facility] was [facility] August (3 month supply) and was not refilled in November due to insufficient payment, therefore the patient was likely NOT taking eliquis at home and may resume on eliquis at discharge Plan: -Discontinue Heparin Drip - Start Eliquis at therapeutic dosing 10mg po BID x7days, then 5mg po BID daily for lifelong therapy
[2021-01-21] MEDS ORDERED: APIXABAN 5 MG TAB PO SCH (10:45)
== END 2021-01-21 13:18 | disposition home or self-care (01) | DRG 299 ==
LOC: EC 17:57 → 5NMEDONC 20:56 → 4SSUR 01-20 02:20 → 1SOBS 01-20 08:42
PROVIDERS: ADMIT Hospitalist; ATTEND Hospitalist
DX: I82.403 Acute embolism and thrombosis of unspecified deep veins of lower extremity, bilateral (principal); U07.1 COVID-19; N17.9 Acute kidney failure, unspecified; G40.909 Epilepsy, unspecified, not intractable, without status epilepticus; I48.0 Paroxysmal atrial fibrillation; E78.5 Hyperlipidemia, unspecified; N18.30 Chronic kidney disease, stage 3 unspecified; I12.9 Hypertensive chronic kidney disease with stage 1 through stage 4 chronic kidney disease, or unspecified chronic kidney disease; I69.320 Aphasia following cerebral infarction; I25.10 Atherosclerotic heart disease of native coronary artery without angina pectoris; I25.2 Old myocardial infarction; K40.90 Unilateral inguinal hernia, without obstruction or gangrene, not specified as recurrent; M11.20 Other chondrocalcinosis, unspecified site; Z79.01 Long term (current) use of anticoagulants; Z79.899 Other long term (current) drug therapy; Z88.5 Allergy status to narcotic agent; Z88.8 Allergy status to other drugs, medicaments and biological substances; Z90.49 Acquired absence of other specified parts of digestive tract; Z95.5 Presence of coronary angioplasty implant and graft; Z98.1 Arthrodesis status; Z82.49 Family history of ischemic heart disease and other diseases of the circulatory system
CPT/HCPCS: 36415; 80048; 80053; 85025; 85610; 85730; 87635; 99284

== ENCOUNTER → 2021-01-19 | Outpatient (CLI) | payer MEDICARE ==
--- NOTE | 2021-01-19 19:21 | US ---
EXAMINATION TYPE: US venous doppler duplex LE DATE OF EXAM: 01/19/2021 5:46 PM COMPARISON: NONE CLINICAL HISTORY: [id number], PAIN IN RIGHT AND LEFT LEGS. SIDE PERFORMED: Bilateral TECHNIQUE: The lower extremity deep venous system is examined utilizing real time linear array sonog cirilo with graded compression, doppler sonography and color-flow sonography. VESSELS IMAGED: Common Femoral Vein Deep Femoral Vein Greater Saphenous Vein * Femoral Vein Popliteal Vein Small Saphenous Vein * Proximal Calf Veins (* superficial vessels) Right Leg: Positive for DVT.There is nonocclusive thrombus seen within the mid popliteal vein that e xtends into the proximal calf veins. Left Leg: Positive for DVT. There is nonocclusive thrombus seen within the distal femoral vein throu gh the prox calf veins. There is occlusive thrombus from the mid popliteal vein through the proximal calf veins. IMPRESSION: 1. Nonocclusive deep venous thrombosis of the right popliteal vein into the proximal calf veins. 2. Nonocclusive and occlusive deep venous thrombosis of the left distal femoral vein through the calf veins as above. Technical Maintenance Specialist called report to ordering provider's office at time of examination.
== END | disposition home or self-care (01) ==
LOC: RADUSWWP 17:21
PROVIDERS: ATTEND Physician Assistant Medical
DX: I82.431 Acute embolism and thrombosis of right popliteal vein (principal); I82.412 Acute embolism and thrombosis of left femoral vein
CPT/HCPCS: 93970

== ENCOUNTER → 2021-10-25 | Outpatient (CLI) | payer MEDICARE ==
--- NOTE | 2021-10-26 07:39 | XR ---
EXAMINATION TYPE: XR lumbosacral spine min 4V DATE OF EXAM: 10/25/2021 CLINICAL HISTORY: pain COMPARISON: NONE TECHNIQUE: Frontal, lateral, and oblique images of the lumbar spine are obtained. FINDINGS: There are 5 lumbar type vertebral bodies identified. The lumbar spine shows satisfactory alignment without evidence of acute fracture or dislocation. Vertebral body heights are within normal limits. Moderate multilevel degenerative disc space narrowing and spondylosis. Severe facet joint ar thropathy. The overlying soft tissue appears unremarkable. IMPRESSION: No acute fracture or dislocation is seen in the lumbar spine.ICD 10 NO FRACTURE, INITIAL EVALUATION
== END | disposition home or self-care (01) ==
LOC: RADXRYALE 16:17
PROVIDERS: ATTEND Physician Assistant Medical
DX: M54.50 Low back pain, unspecified (principal)
CPT/HCPCS: 72110

== ENCOUNTER → 2021-11-24 | Outpatient (CLI) | payer MEDICARE ==
--- NOTE | 2021-11-25 02:53 | MR ---
EXAMINATION TYPE: MR lumbar spine wo con DATE OF EXAM: 11/24/2021 COMPARISON: 05/08/2016 HISTORY: M54.50 Low back pain, right sided for a couple months Multiplanar multiecho imaging of the lumbar spine without contrast. Lumbar vertebrae have fairly normal alignment. There is minimal disc space narrowing at L4-5. There i s developmentally adequate spinal canal. No spinal stenosis. No lumbar disc herniation. There is some narrowing of the neural foramina at L4-5 on the left side and related to disc space narrowing and fa cet arthropathy. The sacroiliac joints are intact. There is no paraspinal mass. There is no compressi on fracture. IMPRESSION: Minor degenerative changes in the lumbar spine. No fracture. No spinal stenosis. No adverse change.
== END | disposition home or self-care (01) ==
LOC: RADMRIMAIN 12:55
PROVIDERS: ATTEND Orthopaedic Surgery
DX: M47.816 Spondylosis without myelopathy or radiculopathy, lumbar region (principal)
CPT/HCPCS: 72148

== ENCOUNTER → 2021-11-24 | Outpatient (CLI) | payer MEDICARE ==
--- NOTE | 2021-11-24 16:04 | US ---
EXAMINATION TYPE: US kidneys/renal and bladder DATE OF EXAM: 11/24/2021 COMPARISON: None CLINICAL HISTORY: 81-year-old male N18.3 CHR KIDNEY DISEASE STAGE 3. TECHNIQUE: Multiple sonographic images of the kidneys and bladder are obtained. FINDINGS: EXAM MEASUREMENTS: Right Kidney: 12.0 x 6.0 x 5.1 cm Left Kidney: 10.5 x 4.5 x 4.3 cm Right Kidney: 5.9 x 5.1 x 5.4cm cyst superior pole. No hydronephrosis. Left Kidney: wnl Bladder: wnl Bilateral Jets seen: yes Enlarged prostate measuring at least 5.2 cm wide and impressing into the bladder base. IMPRESSION: 1. No hydronephrosis. A benign 5.9 cm cyst of the upper pole right kidney. 2. Prostatomegaly at 5.2 cm wide.
== END | disposition home or self-care (01) ==
LOC: RADUSWWP 15:17
PROVIDERS: ATTEND Family Medicine
DX: N28.1 Cyst of kidney, acquired (principal); N40.0 Benign prostatic hyperplasia without lower urinary tract symptoms
CPT/HCPCS: 76770

== ENCOUNTER 2022-08-23 18:43 | Observation (INO) | payer MEDICARE ==
[2022-08-23] MEDS ORDERED: NITROGLYCERIN SL TABS 0.4 MG TAB SUBLINGUAL STA ×3 (19:01)
[2022-08-23] MEDS ORDERED: ASPIRIN 81 MG PO STA (19:01)
--- NOTE | 2022-08-23 19:16 | ED ---
General Adult HPI - General Chief complaint: Chest Pain Stated complaint: chest pain Time Seen by Provider: 08/23/22 18:55 Source: patient, family, RN notes reviewed, old records reviewed Mode of arrival: wheelchair Limitations: no limitations - History of Present Illness Initial comments: Patient is an 82-year-old male with past medical history remarkable for cardiac disease, atrial fibrillation, prior CVA with residual aphasia, right-sided weakness, who presents emergency Department with chest pain for the last 1-2 hours. Patient presents with family members. Patient has been clutching his chest for the last 1-2 hours. He is a poor historian, however the patient's family states that he has been clutching his chest for the last 2 hours and from what I gather with his cardiac history they're worried for cardiac history at this time. Exam is limited otherwise. He is unable to provide much information. Presents for further evaluation this time. - Related Data Home Medications Medication Instructions Recorded Confirmed Atorvastatin Calcium [Lipitor] 20 mg PO HS 01/19/21 08/23/22 Metoprolol Tartrate [Lopressor] 25 mg PO BID 01/19/21 08/23/22 QUEtiapine [SEROquel] 100 mg PO HS 01/19/21 08/23/22 Tamsulosin HCl [Flomax] 0.8 mg PO HS 01/19/21 08/23/22 levETIRAcetam [Keppra] 750 mg PO BID 10/27/21 08/23/22 Previous Rx's Medication Instructions Recorded Apixaban [Eliquis] 5 mg PO BID 30 Days #60 tab 01/21/21 Allergies Allergy/AdvReac Type Severity Reaction Status Date / Time lorazepam [From Ativan] Allergy Confusion Verified 08/23/22 19:42 hydromorphone HCl AdvReac Nausea & Verified 08/23/22 19:42 [From Dilaudid] Vomiting Review of Systems ROS Statement: Those systems with pertinent positive or pertinent negative responses have been documented in the HPI. ROS Other: All systems not noted in ROS Statement are negative. Past Medical History Past Medical History: Atrial Fibrillation, Coronary Artery Disease (CAD), CVA/TIA, Hyperlipidemia, Hypertension, Memory Impairment, Myocardial Infarction (HI), Neurologic Disorder, Seizure Disorder Additional Past Medical History / Comment(s): LAST SEIZURE 2018, RIGHT GROIN HERNIA, CELLULITIS. COVID 02/18 Last Myocardial Infarction Date:: 2010 History of Any Multi-Drug Resistant Organisms: None Reported Past Surgical History: Appendectomy, Heart Catheterization With Stent Additional Past Surgical History / Comment(s): cervical disc replacement Past Anesthesia/Blood Transfusion Reactions: No Reported Reaction Date of Last Stent Placement:: 2010 Past Psychological History: No Psychological Hx Reported Smoking Status: Never smoker Past Alcohol Use History: None Reported Past Drug Use History: None Reported - Past Family History Father Family Medical History: Coronary Artery Disease (CAD) General Exam - General Exam Comments Initial Comments: General: Appears in no acute distress. HEAD: Normal with no signs of head trauma. EYES: PERRLA, EOMI, conjunctiva normal, no discharge. ENT: Hearing grossly intact, normal oropharynx. RESPIRATORY: Clear breath sounds bilaterally. No wheezes, rales, or rhonchi. C/V: Regular rate and rhythm. S1 and S2 auscultated, no edema, peripheral pulses 2+ and intact throughout. Chest pain is reproducible on palpation of the sternum and bilateral ribs. ABD: Abd is soft, nontender, nondistended EXT: Normal range of motion, no obvious deformity SKIN: No rashes or lesions observed on exposed skin. NEURO: Alert and oriented 4. Limitations: no limitations Course Vital Signs 08/23/22 08/23/22 08/23/22 18:44 19:15 20:36 Temperature 98.1 F Pulse Rate 63 67 68 Pulse Rate [ 68 Apical] Respiratory 18 18 14 Rate Blood Pressure 197/108 215/108 O2 Sat by Pulse 100 98 97 Oximetry 08/23/22 21:14 Temperature Pulse Rate 68 Pulse Rate [ Apical] Respiratory 14 Rate Blood Pressure 188/98 O2 Sat by Pulse 98 Oximetry Medical Decision Making - Medical Decision Making Based on the patient's presentation and physical exam, I'm concerned for possible cardiac etiology for his current symptoms. Cannot rule out ACS. We'll obtain cardiac workup. Patient will be given 324 mg of aspirin. We will trial nitroglycerin tablets evaluate for improvement. Patient and his family members were in agreement this plan. Vital signs within acceptable limits. History is limited due to his past medical history. Patient does take blood thinners, Eliquis. EKG shows atrial fibrillation with no signs of acute ischemia. Chest x-ray as interpreted by myself reveals no acute cardiopulmonary process. No pneumothorax, infiltrate, acute bony traumatic injury. Radiology reads mild pulmonary fibrosis. Laboratory studies are remarkable for an elevated creatinine in the setting of CK D. Troponin is undetectable. Patient is a chronic thrombocytopenia which is present. On reevaluation, patient is chest pain is resolved following one nitroglycerin tablet but now is complaining of some mild abdominal pain at this time. We will obtain a CT abdomen and pelvis due to him being a poor historian with difficulty in understanding what he is is trying to communicate. Family and patient were in agreement this plan. CT abdomen and pelvis as interpreted by myself reveals an enlarged gallbladder but no other obvious signs of infection or obstruction. Radiology was concerned regarding the enlarged gallbladder but it could represent cholecystitis with clinical correlation. I did discuss the findings with the patient as well as his family. Laboratory studies do not support acute cholecystitis. Abdominal pain is resolved at this time. He is feeling improved and is resting comfortably. Due to his cardiac history, we will admit him to observation for cardiac evaluation. We will trend the troponin. We will continue his blood thinning medication. They were in agreement this plan. Dr. Rodrigez of surgery will be consulted due to the CT findings, and I contacted him and he was in agreement to consult. I spoke with the admitting physician, Dr. Cordova who accepted the patient. Patient was admitted in stable condition. - Lab Data Result diagrams: 08/23/22 19:18 08/23/22 19:18 Lab Results 08/23/22 08/23/22 08/23/22 Range/Units 19:18 19:18 19:18 WBC 5.2 (3.8-10.6) k/uL RBC 5.11 (4.30-5.90) m/uL Hgb 14.4 (13.0-17.5) gm/dL Hct 42.1 (39.0-53.0) % MCV 82.3 (80.0-100.0) fL MCH 28.2 (25.0-35.0) pg MCHC 34.3 (31.0-37.0) g/dL RDW 13.9 (11.5-15.5) % Plt Count 121 L (150-450) k/uL MPV 9.7 Neutrophils % 72 % Lymphocytes % 17 % Monocytes % 7 % Eosinophils % 2 % Basophils % 0 % Neutrophils # 3.8 (1.3-7.7) k/uL Lymphocytes # 0.9 L (1.0-4.8) k/uL Monocytes # 0.4 (0-1.0) k/uL Eosinophils # 0.1 (0-0.7) k/uL Basophils # 0.0 (0-0.2) k/uL PT 11.9 (9.0-12.0) sec INR 1.1 (<1.2) APTT 28.4 (22.0-30.0) sec Sodium 138 (137-145) mmol/L Potassium 4.4 (3.5-5.1) mmol/L Chloride 105 (98-107) mmol/L Carbon Dioxide 24 (22-30) mmol/L Anion Gap 9 mmol/L BUN 16 (9-20) mg/dL Creatinine 1.46 H (0.66-1.25) mg/dL Est GFR (CKD-EPI)AfAm 51 (>60 ml/min/1.73 sqM) Est GFR (CKD-EPI)NonAf 45 (>60 ml/min/1.73 sqM) Glucose 141 H (74-99) mg/dL Calcium 9.0 (8.4-10.2) mg/dL Magnesium 2.0 (1.6-2.3) mg/dL Total Bilirubin 0.8 (0.2-1.3) mg/dL AST 37 (17-59) U/L ALT 43 (4-49) U/L Alkaline Phosphatase 92 (38-126) U/L Troponin I (0.000-0.034) ng/mL Total Protein 6.7 (6.3-8.2) g/dL Albumin 4.3 (3.5-5.0) g/dL 08/23/22 Range/Units 19:18 WBC (3.8-10.6) k/uL RBC (4.30-5.90) m/uL Hgb (13.0-17.5) gm/dL Hct (39.0-53.0) % MCV (80.0-100.0) fL MCH (25.0-35.0) pg MCHC (31.0-37.0) g/dL RDW (11.5-15.5) % Plt Count (150-450) k/uL MPV Neutrophils % % Lymphocytes % % Monocytes % % Eosinophils % % Basophils % % Neutrophils # (1.3-7.7) k/uL Lymphocytes # (1.0-4.8) k/uL Monocytes # (0-1.0) k/uL Eosinophils # (0-0.7) k/uL Basophils # (0-0.2) k/uL PT (9.0-12.0) sec INR (<1.2) APTT (22.0-30.0) sec Sodium (137-145) mmol/L Potassium (3.5-5.1) mmol/L Chloride (98-107) mmol/L Carbon Dioxide (22-30) mmol/L Anion Gap mmol/L BUN (9-20) mg/dL Creatinine (0.66-1.25) mg/dL Est GFR (CKD-EPI)AfAm (>60 ml/min/1.73 sqM) Est GFR (CKD-EPI)NonAf (>60 ml/min/1.73 sqM) Glucose (74-99) mg/dL Calcium (8.4-10.2) mg/dL Magnesium (1.6-2.3) mg/dL Total Bilirubin (0.2-1.3) mg/dL AST (17-59) U/L ALT (4-49) U/L Alkaline Phosphatase (38-126) U/L Troponin I <0.012 (0.000-0.034) ng/mL Total Protein (6.3-8.2) g/dL Albumin (3.5-5.0) g/dL - EKG Data -: EKG Interpreted by Me EKG Comments: 12-lead Electrocardiogram Interpretation Note EKG was reviewed and interpreted by myself. 12-lead ECG performed at 1854 is interpreted by me as revealing atrial fibrillation at a rate of 71 beats per minute. Jackson is normal, QRS duration is 80 ms, QTc is 389 ms.. There were no ST or T wave abnormalities to suggest myocardial ischemia or injury. R wave progression across the precordium was satisfactory. By my interpretation this EKG is non-diagnostic for acute ischemia.When compared with prior EKG from March 2020, no significant change. Disposition Clinical Impression: Chest pain, Enlarged gallbladder Disposition: ADMITTED IP TO THIS HOSP Condition: Stable Referrals: Faisal Anaya DO [Primary Care Provider] - 1-2 days Time of Disposition: 21:00
--- NOTE | 2022-08-23 19:46 | XR ---
EXAMINATION TYPE: XR chest 2V DATE OF EXAM: 08/23/2022 COMPARISON: NONE HISTORY: Chest pain TECHNIQUE: 2 views FINDINGS: Heart is enlarged. There is mild coarsening of interstitial markings. No heart failure. No pleural effusion. There are chest leads. IMPRESSION: Mild pulmonary fibrosis. No heart failure or pulmonary consolidation. Lung markings incre ased compared to old exam.
[2022-08-23 20:06] LABS: Basophils % (A) 0 %; Eosinophils # (A) 0.1 k/uL (0-0.7); Eosinophils % (A) 2 %; HCT 42.1 % (39.0-53.0); HGB 14.4 gm/dL (13.0-17.5); Lymphocytes # (A) 0.9 k/uL (1.0-4.8); Lymphocytes % (A) 17 %; MCH 28.2 pg (25.0-35.0); MCHC 34.3 g/dL (31.0-37.0); MCV 82.3 fL (80.0-100.0); Mean Platelet Volume 9.7; Monocytes # (A) 0.4 k/uL (0-1.0); Monocytes % (A) 7 %; Neutrophils # (A) 3.8 k/uL (1.3-7.7); Neutrophils % (A) 72 %; Platelet Count 121 k/uL (150-450); RBC 5.11 m/uL (4.30-5.90); RDW 13.9 % (11.5-15.5); WBC 5.2 k/uL (3.8-10.6)
[2022-08-23 20:20] LABS: Albumin 4.3 g/dL (3.5-5.0); Potassium 4.4 mmol/L (3.5-5.1); Total Bilirubin 0.8 mg/dL (0.2-1.3); Total Protein 6.7 g/dL (6.3-8.2)
[2022-08-23 20:26] LABS: INR 1.1 (<1.2); Partial Thromboplastin Time 28.4 sec (22.0-30.0); Prothrombin Time 11.9 sec (9.0-12.0)
[2022-08-23] MEDS ORDERED: SODIUM CHLORIDE 0.9% 1,000 ML IV STA (20:26)
[2022-08-23] MEDS ORDERED: NITROGLYCERIN OINT 1 INCH/GM PACKET TOPICAL STA (20:26)
[2022-08-23] MEDS ORDERED: MORPHINE SULFATE 4 MG/ML SYRINGE IVP STA (20:26)
--- NOTE | 2022-08-23 21:13 | CT ---
EXAMINATION TYPE: CT abdomen pelvis w con DATE OF EXAM: 08/23/2022 COMPARISON: 12/27/2015 HISTORY: abd pain CT DLP: 1245.9 mGycm Automated exposure control for dose reduction was used. CONTRAST: Performed with IV Contrast, patient injected with 70ml mL of Isovue 300. Images obtained from the diaphragm to the floor the pelvis with the IV contrast. There is minimal subsegmental atelectasis at the posterior lung bases. Heart size is top normal. No p ericardial effusion. No pleural effusion. There is a 1.5 cm cyst in the anterior right lobe of the liver. Spleen is intact. There is no pancrea tic mass. The stomach is intact. There is distended gallbladder that measures 12.5 x 4.6 cm. The bile ducts are not dilated. There is no adrenal mass. Kidneys show satisfactory contrast opacification. No hydronephrosis. Delaye d images show normal renal excretion. There is a 6 cm cortical cyst posterior right kidney. No retrop eritoneal adenopathy. Ureters are not dilated. No evidence of a bladder mass. No inguinal hernia. The prostate is enlarged and measures 6 cm. No free fluid in the pelvis. There is no mesenteric edema. No ascites or free air. No evidence of a bowel obstruction. Appendix no t seen. Terminal ileum appears normal. The lumbar vertebra have normal alignment. No compression fracture. There is degenerative anterior sp urring in the mid and lower lumbar spine. The bony pelvis is intact. Hip joints are intact. There is mild acetabular spurring. Sacroiliac joints are intact. IMPRESSION: Mild subsegmental atelectasis at the lung bases appears mostly new compared to old exam. Dilated gallbladder suggestive of gallbladder dysfunction or cholecystitis and is a change compared t o old exam. Enlarged prostate. Prostate appears increased compared to old exam.
[2022-08-23] MEDS ORDERED: NALOXONE 0.4 MG/ML 1 ML VIAL IV PRN (21:42)
[2022-08-23] MEDS ORDERED: MORPHINE SULFATE 4 MG/ML SYRINGE IV PRN (21:42)
--- NOTE | 2022-08-24 00:13 | P.HPIM ---
History of Present Illness H&P Date: 08/23/22 The patient is an 82-year-old male with a PMH of A. fib on Eliquis, dementia, hypertension, hyperlipidemia, chronic kidney disease, seizure disorder, and BPH who was brought into the emergency room due to complaints of chest pain. The patient is a relatively poor historian, thereby history supplemented from the chart and from the ED provider. The patient had reportedly been clutching his chest for 2 hours prior to arrival and had been complaining of upper abdominal and lower chest discomfort. There are no reports of shortness of breath, nausea, diaphoresis, or vomiting. The patient reports discomfort in the upper abdominal area but cannot state when it started. He denied any additional complaints, albeit was a poor historian. CT abdomen and pelvis in the emergency room revealed dilated gallbladder suggestive of gallbladder dysfunction with an enlarged prostate. Laboratory evaluation was remarkable for troponin less than 0.012 creatinine 1.46 and platelet count 121. The case was discussed by ED physician with general surgery, who will be on consult. Review of systems: Pertinent positives and negatives as discussed in HPI, a complete review of systems was performed and all other systems are negative. Physical examination: General: non toxic, no distress, appears at stated age, obese Derm: no unusual rashes/lesions, warm Head: atraumatic, normocephalic, symmetric Eyes: EOMI, no lid lag, anicteric sclera, pupils equal round reactive to light ENT: Nose and ears atraumatic Neck: No cervical lymphadenopathy, trachea midline, supple Mouth: no lip lesion, mucus membranes moist Cardiovascular: S1S2 reg, no murmur, positive dorsalis pedis pulse bilateral, no edema Lungs: CTA bilateral, no rhonchi, no rales, no accessory muscle use Abdominal: soft, nontender to palpation, no guarding Ext: muscle strength 5 out of 5 in all 4 extremities grossly, no gross muscle atrophy, no contractures, Neuro: CN II-XI grossly intact, no gross focal neuro deficits Psych: Alert, oriented only to self Assessment/plan Epigastric pain, rule out ACS -Trend troponin -Cardiac monitoring -Cardiology consult -Continue with aspirin, statin Gallbladder distention with cholelithiasis -General surgery consulted Thrombocytopenia, unclear etiology -Monitor for now Chronic conditions: A. fib, dementia, hypertension, hyperlipidemia, seizure disorder, chronic kidney disease -Continue with home meds DVT prophylaxis -Eliquis The patient is admitted with an anticipated less than 2 midnight stay for evaluation of chest pain CODE STATUS: Full Code Discussed with: Patient Anticipated discharge date: in am Anticipated discharge place: Home Past Medical History Past Medical History: Atrial Fibrillation, Coronary Artery Disease (CAD), CVA/TIA, Hyperlipidemia, Hypertension, Memory Impairment, Myocardial Infarction ([place]), Neurologic Disorder, Seizure Disorder Additional Past Medical History / Comment(s): LAST SEIZURE 2018, RIGHT GROIN HERNIA, CELLULITIS. COVID 02/18 Last Myocardial Infarction Date:: 2010 History of Any Multi-Drug Resistant Organisms: None Reported Past Surgical History: Appendectomy, Heart Catheterization With Stent Additional Past Surgical History / Comment(s): cervical disc replacement Past Anesthesia/Blood Transfusion Reactions: No Reported Reaction Date of Last Stent Placement:: 2010 Past Psychological History: No Psychological Hx Reported Smoking Status: Never smoker Past Alcohol Use History: None Reported Past Drug Use History: None Reported - Past Family History Father Family Medical History: Coronary Artery Disease (CAD) Medications and Allergies Home Medications Medication Instructions Recorded Confirmed Type Atorvastatin Calcium [Lipitor] 20 mg PO HS 01/19/21 08/23/22 History Metoprolol Tartrate [Lopressor] 25 mg PO BID 01/19/21 08/23/22 History QUEtiapine [SEROquel] 100 mg PO HS 01/19/21 08/23/22 History Tamsulosin HCl [Flomax] 0.8 mg PO HS 01/19/21 08/23/22 History Apixaban [Eliquis] 5 mg PO BID 30 Days #60 tab 01/21/21 08/23/22 Rx levETIRAcetam [Keppra] 750 mg PO BID 10/27/21 08/23/22 History Allergies Allergy/AdvReac Type Severity Reaction Status Date / Time lorazepam [From Ativan] Allergy Confusion Verified 08/23/22 19:42 hydromorphone HCl AdvReac Nausea & Verified 08/23/22 19:42 [From Dilaudid] Vomiting Physical Exam Vitals: Vital Signs Temp Pulse Pulse Resp BP Pulse Ox 08/23/22 21:14 68 14 188/98 98 08/23/22 20:36 68 14 215/108 97 08/23/22 19:15 67 68 18 197/108 98 08/23/22 18:44 98.1 F 63 18 100 Intake and Output 08/23/22 08/23/22 08/24/22 14:59 22:59 06:59 Other: Weight 90.718 kg Results CBC & Chem 7: 08/23/22 19:18 08/23/22 19:18 Labs: Abnormal Lab Results - Last 24 Hours (Table) 08/23/22 08/23/22 Range/Units 19:18 19:18 Plt Count 121 L (150-450) k/uL Lymphocytes # 0.9 L (1.0-4.8) k/uL Creatinine 1.46 H (0.66-1.25) mg/dL Glucose 141 H (74-99) mg/dL Thrombosis Risk Factor Assmnt - Choose All That Apply Any of the Below Risk Factors Present?: Yes Each Factor Represents 1 point: Obesity (BMI >25) Other Risk Factors: Yes Each Risk Factor Represents 3 Points: Age 75 years or older Other congenital or acquired thrombophilia - If yes, enter type in comment: No Thrombosis Risk Factor Assessment Total Risk Factor Score: 4 Thrombosis Risk Factor Assessment Level: Moderate Risk
[2022-08-24 02:36] LABS: Basophils % (A) 1 %; Eosinophils # (A) 0.1 k/uL (0-0.7); Eosinophils % (A) 1 %; HCT 41.2 % (39.0-53.0); HGB 13.6 gm/dL (13.0-17.5); Lymphocytes # (A) 1.3 k/uL (1.0-4.8); Lymphocytes % (A) 21 %; MCH 27.4 pg (25.0-35.0); MCHC 33.1 g/dL (31.0-37.0); MCV 82.9 fL (80.0-100.0); Mean Platelet Volume 9.4; Monocytes # (A) 0.5 k/uL (0-1.0); Monocytes % (A) 8 %; Neutrophils # (A) 4.1 k/uL (1.3-7.7); Neutrophils % (A) 68 %; Platelet Count 134 k/uL (150-450); RBC 4.98 m/uL (4.30-5.90); RDW 13.8 % (11.5-15.5)
[2022-08-24 02:56] LABS: Calcium 8.6 mg/dL (8.4-10.2); Potassium 4.6 mmol/L (3.5-5.1)
[2022-08-24 03:46] VITALS: RESP 16
[2022-08-24 08:37] VITALS: BP 180/79; PULSE 75; TEMP 98.1
[2022-08-24] MEDS ORDERED: APIXABAN 5 MG TAB PO SCH (09:00)
[2022-08-24] MEDS ORDERED: METOPROLOL TARTRATE 25 MG TAB PO SCH (09:00)
--- NOTE | 2022-08-24 09:26 | P.CRDCN ---
History of Present Illness History of present illness: HISTORY OF PRESENTING ILLNESS Patient is pleasant 82-year-old male with history of prior stroke, persistent atrial fibrillation, hypertension, mild dementia, chronic kidney disease, seizure disorder who presents secondary abdominal pain. He states that he had one episode of abdominal pain and denies any associated chest pain or pressure. Denies any associated shortness of breath. States it improved in the emergency department and now he feels back to normal and wants to go home. He does have some poor recall with some dementia. He denies any history of CAD or prior PCI. He did have a CTA performed which showed dilated gallbladder with possible gallbladder dysfunction. EKG shows atrial fibrillation with nonspecific minimal ST depressions in the inferior leads. Troponin is noted to be normal 3. His last echo was from 2013 which showed preserved EF. There was some report of chest pain however patient currently denying any sort of chest pain and only states mid and lower abdominal pain. REVIEW OF SYSTEMS At the time of my exam: CONSTITUTIONAL: Denies fever or chills. CARDIOVASCULAR: Denies chest pain, shortness of breath, orthopnea, PND or palpitations. RESPIRATORY: Denies cough. GASTROINTESTINAL: +Abdominal pain, no diarrhea, constipation, nausea or vomiting. MUSCULOSKELETAL: Denies myalgias. NEUROLOGIC: Denies numbness, tingling or weakness. ENDOCRINE: Denies fatigue, weight change, polydipsia or polyurina. GENITOURINARY: Denies burning, hematuria or urgency with micturation. HEMATOLOGIC: Denies history of anemia or bleeding. PHYSICAL EXAMINATION Vital signs reviewed. CONSTITUTIONAL: No apparent distress HEENT: Head is normocephalic. Pupils are equal, round. Sclerae anicteric. Mucous membranes of the mouth are moist. No JVD. No carotid bruit. CHEST EXAMINATION: Lungs are clear to auscultation. No chest wall tenderness is noted on palpation or with deep breathing. HEART EXAMINATION: Regular rate and rhythm. S1, S2 heard. No murmurs, gallops or rub. ABDOMEN: Soft, nontender. Positive bowel sounds. EXTREMITIES: 2+ peripheral pulses, no lower extremity edema and no calf tenderness. NEUROLOGIC EXAMINATION: Patient is awake, alert poor recall ASSESSMENT 1. Abdominal pain, patient denying any actual chest pain may be related to gallbladder source 2. Persistent atrial fibrillation with controlled rate 3. Hypertension 4. CKD 5. Dementia 6. History of stroke PLAN Patient's pain appeared more abdominal per patient. There was some report of chest pain however currently denying any. Symptoms have improved and workup unrevealing with troponin normal 3. No significant ischemic changes on EKG. Continue current medical regimen and follow-up outpatient with possible echo and stress test as an outpatient. Stable for discharge home from cardio standpoint. Past Medical History Past Medical History: Atrial Fibrillation, Coronary Artery Disease (CAD), CVA/TIA, Hyperlipidemia, Hypertension, Memory Impairment, Myocardial Infarction (IA), Neurologic Disorder, Seizure Disorder Additional Past Medical History / Comment(s): LAST SEIZURE 2018, RIGHT GROIN HERNIA, CELLULITIS. COVID 02/18 Last Myocardial Infarction Date:: 2010 History of Any Multi-Drug Resistant Organisms: None Reported Past Surgical History: Appendectomy, Heart Catheterization With Stent Additional Past Surgical History / Comment(s): cervical disc replacement Past Anesthesia/Blood Transfusion Reactions: No Reported Reaction Date of Last Stent Placement:: 2010 Past Psychological History: No Psychological Hx Reported Smoking Status: Never smoker Past Alcohol Use History: None Reported Past Drug Use History: None Reported - Past Family History Father Family Medical History: Coronary Artery Disease (CAD) Medications and Allergies Home Medications Medication Instructions Recorded Confirmed Type Atorvastatin Calcium [Lipitor] 20 mg PO HS 01/19/21 08/23/22 History Metoprolol Tartrate [Lopressor] 25 mg PO BID 01/19/21 08/23/22 History QUEtiapine [SEROquel] 100 mg PO HS 01/19/21 08/23/22 History Tamsulosin HCl [Flomax] 0.8 mg PO HS 01/19/21 08/23/22 History Apixaban [Eliquis] 5 mg PO BID 30 Days #60 tab 01/21/21 08/23/22 Rx levETIRAcetam [Keppra] 750 mg PO BID 10/27/21 08/23/22 History Allergies Allergy/AdvReac Type Severity Reaction Status Date / Time lorazepam [From Ativan] Allergy Confusion Verified 08/23/22 19:42 hydromorphone HCl AdvReac Nausea & Verified 08/23/22 19:42 [From Dilaudid] Vomiting Physical Exam Vitals: Vital Signs Temp Pulse Pulse Resp BP BP Pulse Ox 08/24/22 07:00 98.1 F 75 16 180/79 97 08/24/22 03:01 98.0 F 56 L 16 138/68 97 08/23/22 22:41 98.0 F 74 18 167/90 96 08/23/22 21:14 68 14 188/98 98 08/23/22 20:36 68 14 215/108 97 08/23/22 19:15 67 68 18 197/108 98 08/23/22 18:44 98.1 F 63 18 100 Intake and Output 08/23/22 08/24/22 08/24/22 22:59 06:59 14:59 Other: # Voids 1 Weight 90.718 kg Results 08/24/22 02:03 08/24/22 02:03 Cardiac Enzymes 08/23/22 08/23/22 08/23/22 Range/Units 19:18 19:18 23:41 AST 37 (17-59) U/L Troponin I <0.012 <0.012 (0.000-0.034) ng/mL 08/24/22 Range/Units 02:03 AST (17-59) U/L Troponin I <0.012 (0.000-0.034) ng/mL Coagulation 08/23/22 Range/Units 19:18 PT 11.9 (9.0-12.0) sec APTT 28.4 (22.0-30.0) sec CBC 08/23/22 08/24/22 Range/Units 19:18 02:03 WBC 5.2 6.0 (3.8-10.6) k/uL RBC 5.11 4.98 (4.30-5.90) m/uL Hgb 14.4 13.6 (13.0-17.5) gm/dL Hct 42.1 41.2 (39.0-53.0) % Plt Count 121 L 134 L (150-450) k/uL Comprehensive Metabolic Panel 08/23/22 08/24/22 Range/Units 19:18 02:03 Sodium 138 137 (137-145) mmol/L Potassium 4.4 4.6 (3.5-5.1) mmol/L Chloride 105 105 (98-107) mmol/L Carbon Dioxide 24 24 (22-30) mmol/L BUN 16 16 (9-20) mg/dL Creatinine 1.46 H 1.37 H (0.66-1.25) mg/dL Glucose 141 H 133 H (74-99) mg/dL Calcium 9.0 8.6 (8.4-10.2) mg/dL AST 37 (17-59) U/L ALT 43 (4-49) U/L Alkaline Phosphatase 92 (38-126) U/L Total Protein 6.7 (6.3-8.2) g/dL Albumin 4.3 (3.5-5.0) g/dL Current Medications Generic Name Dose Route Start Last Admin Trade Name Freq PRN Reason Stop Dose Admin Apixaban 5 mg 08/24/22 09:00 08/24/22 08:49 Apixaban 5 Mg Tab PO 5 mg BID MICHAEL Administration Protocol Atorvastatin Calcium 20 mg 08/24/22 21:00 Atorvastatin 20 Mg Tab PO HS MICHAEL Levetiracetam 750 mg 08/24/22 09:00 08/24/22 08:50 Levetiracetam 750 Mg Tab PO 750 mg BID MICHAEL Administration Metoprolol Tartrate 25 mg 08/24/22 09:00 08/24/22 08:49 Metoprolol Tartrate 25 Mg Tab PO 25 mg BID MICHAEL Administration Morphine Sulfate 4 mg 08/23/22 21:42 Morphine Sulfate 4 Mg/Ml Syringe IV Q4HR PRN Severe Pain (Scale 7 to 10) Naloxone HCl 0.2 mg 08/23/22 21:42 Naloxone 0.4 Mg/Ml 1 Ml Vial IV Q2M PRN Opioid Reversal Quetiapine Fumarate 100 mg 08/24/22 21:00 Quetiapine 100 Mg Tab PO HS MICHAEL Tamsulosin HCl 0.8 mg 08/24/22 21:00 Tamsulosin 0.4 Mg Cap.Er.24h PO HS [facility] Intake and Output 08/23/22 08/24/22 08/24/22 22:59 06:59 14:59 Other: # Voids 1 Weight 90.718 kg 08/24/22 02:03 08/24/22 02:03
--- NOTE | 2022-08-24 11:50 | P.DS ---
Providers Date of admission: 08/23/22 21:44 Expected date of discharge: 08/24/22 Attending physician: Jc Cordova MD Consults: 08/23/22 21:42 Consult Physician Routine Consulting Provider: Silver Rodrigez Consult Reason/Comments: englarged GB Do you want consulting provider notified?: Already Contacted Consult Physician Routine Consulting Provider: [facility] Consult Reason/Comments: chest pain Do you want consulting provider notified?: Yes, Notify in am Primary care physician: Faisal Anaya Hospital Course: Discharge Diagnosis: Chest pain Epigastric pain Gallbladder distention Thrombocytopenia Hypertension Enlarged prostate Hospital Course: 82-year-old male with a PMH of A. fib on Eliquis, dementia, hypertension, hyperlipidemia, chronic kidney disease, seizure disorder, and BPH who was brought into the emergency room due to complaints of chest pain and possible epigastric pain. CT abdomen and pelvis revealed dilated gallbladder suggestive of either gallbladder dysfunction or possible cholecystitis, and also enlarged prostate. Laboratory evaluation was unremarkable. Patient has been afebrile, hypertensive, normal heart rate, and had normal white count. Pain resolved this morning. Low concern for acute cholecystitis. Troponin negative. Cardiology was consulted. No further interventions. Patient insisted on going home this morning. General surgery was consulted, however, patient wanted to leave early. Patient will have a follow-up as an outpatient with surgery for further evaluation of gallbladder distention. Patient seen and examined at bedside. Vital signs reviewed and stable. General: nontoxic, no distress, appears at stated age Derm: warm, dry Head: atraumatic, normocephalic, symmetric Eyes: EOMI, no lid lag, anicteric sclera Mouth: no lip lesion, mucus membranes moist Cardiovascular: S1S2 reg, no murmur Lungs: CTA bilateral, no rhonchi, no rales , no accessory muscle use Abdominal: soft, nontender to palpation, no guarding, no appreciable organomegaly Ext: no gross muscle atrophy, no edema, no contractures Neuro: CN II-XI grossly intact, no focal neuro deficits Psych: Alert, oriented, appropriate affect A total of 34 minutes of time were spent preparing this complex discharge summary. Patient was discharged on 08/24/22 at 10:29. Patient Condition at Discharge: Stable Plan - Discharge Summary New Discharge Prescriptions: Continue Metoprolol Tartrate [Lopressor] 25 mg PO BID QUEtiapine [SEROquel] 100 mg PO HS Atorvastatin Calcium [Lipitor] 20 mg PO HS Tamsulosin HCl [Flomax] 0.8 mg PO HS Apixaban [Eliquis] 5 mg PO BID 30 Days #60 tab levETIRAcetam [Keppra] 750 mg PO BID Discharge Medication List Atorvastatin Calcium [Lipitor] 20 mg PO HS 01/19/21 [History] Metoprolol Tartrate [Lopressor] 25 mg PO BID 01/19/21 [History] QUEtiapine [SEROquel] 100 mg PO HS 01/19/21 [History] Tamsulosin HCl [Flomax] 0.8 mg PO HS 01/19/21 [History] Apixaban [Eliquis] 5 mg PO BID 30 Days #60 tab 01/21/21 [Rx] levETIRAcetam [Keppra] 750 mg PO BID 10/27/21 [History] Follow up Appointment(s)/Referral(s): Silver Rodrigez MD [Medical Doctor] - 1 Week Faisal Anaya DO [Primary Care Provider] - 1-2 days Patient Instructions/Handouts: Abdominal Pain (GEN) Activity/Diet/Wound Care/Special Instructions: See PCP in 1-2 days. You have an enlarged gallbladder, which needs to be assessed by a surgeon in the future. Discharge Disposition: HOME SELF-CARE
--- NOTE | 2022-08-24 11:52 | P.GSCN ---
History of Present Illness Consult date: 08/24/22 Reason for Consult: Abdominal pain. History of present illness: 82-year-old male went to the ER last night clutching his chest with description of chest pain that began yesterday. Apparently while in the hospital the patient says his pain shifted more to the upper abdomen substernal location. This morning the patient's pain is absent. He was seen by cardiology. He has been cleared for discharge. CAT scan showed a mildly distended gallbladder without inflammatory changes. No history of known gallbladder disease. No rectal bleeding or melena. No nausea or vomiting. No history of known ulcers. Patient is anxious to go home when he is fully dressed at this time. Review of Systems The patient denies any acute changes in vision or hearing, no dysphagia or odynophagia, no shortness of breath, no dysuria or hematuria, no headache, no runny nose, no rectal bleeding or melena, no unexplained weight loss Past Medical History Past Medical History: Atrial Fibrillation, Coronary Artery Disease (CAD), CVA/TIA, Hyperlipidemia, Hypertension, Memory Impairment, Myocardial Infarction ([place]), Neurologic Disorder, Seizure Disorder Additional Past Medical History / Comment(s): LAST SEIZURE 2018, RIGHT GROIN HERNIA, CELLULITIS. COVID 02/18 Last Myocardial Infarction Date:: 2010 History of Any Multi-Drug Resistant Organisms: None Reported Past Surgical History: Appendectomy, Heart Catheterization With Stent Additional Past Surgical History / Comment(s): cervical disc replacement Past Anesthesia/Blood Transfusion Reactions: No Reported Reaction Date of Last Stent Placement:: 2010 Past Psychological History: No Psychological Hx Reported Smoking Status: Never smoker Past Alcohol Use History: None Reported Past Drug Use History: None Reported - Past Family History Father Family Medical History: Coronary Artery Disease (CAD) Medications and Allergies Home Medications Medication Instructions Recorded Confirmed Type Atorvastatin Calcium [Lipitor] 20 mg PO HS 01/19/21 08/23/22 History Metoprolol Tartrate [Lopressor] 25 mg PO BID 01/19/21 08/23/22 History QUEtiapine [SEROquel] 100 mg PO HS 01/19/21 08/23/22 History Tamsulosin HCl [Flomax] 0.8 mg PO HS 01/19/21 08/23/22 History Apixaban [Eliquis] 5 mg PO BID 30 Days #60 tab 01/21/21 08/23/22 Rx levETIRAcetam [Keppra] 750 mg PO BID 10/27/21 08/23/22 History Allergies Allergy/AdvReac Type Severity Reaction Status Date / Time lorazepam [From Ativan] Allergy Confusion Verified 08/23/22 19:42 hydromorphone HCl AdvReac Nausea & Verified 08/23/22 19:42 [From Dilaudid] Vomiting Surgical - Exam Vital Signs Temp Pulse Resp Pulse Ox 98.1 F 63 18 100 08/23/22 18:44 08/23/22 18:44 08/23/22 18:44 08/23/22 18:44 Physical exam: General: Well-developed, well-nourished HEENT: Normocephalic, sclerae nonicteric Abdomen: Nontender, nondistended Extremities: No edema Neuro: Alert and oriented Results - Labs 08/24/22 02:03 08/24/22 02:03 Abnormal Lab Results - Last 24 Hours (Table) 08/23/22 08/23/22 08/24/22 Range/Units 19:18 19:18 02:03 Plt Count 121 L 134 L (150-450) k/uL Lymphocytes # 0.9 L (1.0-4.8) k/uL Creatinine 1.46 H (0.66-1.25) mg/dL Glucose 141 H (74-99) mg/dL 08/24/22 Range/Units 02:03 Plt Count (150-450) k/uL Lymphocytes # (1.0-4.8) k/uL Creatinine 1.37 H (0.66-1.25) mg/dL Glucose 133 H (74-99) mg/dL Diabetes panel 08/23/22 08/24/22 Range/Units 19:18 02:03 Sodium 138 137 (137-145) mmol/L Potassium 4.4 4.6 (3.5-5.1) mmol/L Chloride 105 105 (98-107) mmol/L Carbon Dioxide 24 24 (22-30) mmol/L BUN 16 16 (9-20) mg/dL Creatinine 1.46 H 1.37 H (0.66-1.25) mg/dL Glucose 141 H 133 H (74-99) mg/dL Calcium 9.0 8.6 (8.4-10.2) mg/dL AST 37 (17-59) U/L ALT 43 (4-49) U/L Alkaline Phosphatase 92 (38-126) U/L Total Protein 6.7 (6.3-8.2) g/dL Albumin 4.3 (3.5-5.0) g/dL Calcium panel 08/23/22 08/24/22 Range/Units 19:18 02:03 Calcium 9.0 8.6 (8.4-10.2) mg/dL Albumin 4.3 (3.5-5.0) g/dL Pituitary panel 08/23/22 08/24/22 Range/Units 19:18 02:03 Sodium 138 137 (137-145) mmol/L Potassium 4.4 4.6 (3.5-5.1) mmol/L Chloride 105 105 (98-107) mmol/L Carbon Dioxide 24 24 (22-30) mmol/L BUN 16 16 (9-20) mg/dL Creatinine 1.46 H 1.37 H (0.66-1.25) mg/dL Glucose 141 H 133 H (74-99) mg/dL Calcium 9.0 8.6 (8.4-10.2) mg/dL Adrenal panel 08/23/22 08/24/22 Range/Units 19:18 02:03 Sodium 138 137 (137-145) mmol/L Potassium 4.4 4.6 (3.5-5.1) mmol/L Chloride 105 105 (98-107) mmol/L Carbon Dioxide 24 24 (22-30) mmol/L BUN 16 16 (9-20) mg/dL Creatinine 1.46 H 1.37 H (0.66-1.25) mg/dL Glucose 141 H 133 H (74-99) mg/dL Calcium 9.0 8.6 (8.4-10.2) mg/dL Total Bilirubin 0.8 (0.2-1.3) mg/dL AST 37 (17-59) U/L ALT 43 (4-49) U/L Alkaline Phosphatase 92 (38-126) U/L Total Protein 6.7 (6.3-8.2) g/dL Albumin 4.3 (3.5-5.0) g/dL Assessment and Plan (1) Enlarged gallbladder Narrative/Plan: 82-year-old male admitted for chest pain and cardiac workup. Workup thus far negative other than a distended gallbladder. Symptoms may be on the basis of biliary disease. Patient is anxious to go home. May discharge. Outpatient workup can take place at that time with initial study of gallbladder ultrasound. Patient asked to return to the ER if pain recurs. Current Visit: Yes Status: Acute Code(s): K82.8 - OTHER SPECIFIED DISEASES OF GALLBLADDER SNOMED Code(s): 770598332
[2022-08-24] MEDS ORDERED: QUEtiapine 100 MG TAB PO SCH (21:00)
[2022-08-24] MEDS ORDERED: TAMSULOSIN 0.4 MG CAP.ER.24H PO SCH (21:00)
[2022-08-24] MEDS ORDERED: ATORVASTATIN 20 MG TAB PO SCH (21:00)
== END 2022-08-24 12:55 | disposition home or self-care (01) ==
LOC: EC 18:43 → 6NMEDSUR 21:44
PROVIDERS: ADMIT Internal Medicine; ATTEND Internal Medicine
DX: R07.9 Chest pain, unspecified (principal); R10.13 Epigastric pain; K80.20 Calculus of gallbladder without cholecystitis without obstruction; K82.8 Other specified diseases of gallbladder; D69.6 Thrombocytopenia, unspecified; I48.19 Other persistent atrial fibrillation; I25.10 Atherosclerotic heart disease of native coronary artery without angina pectoris; E78.5 Hyperlipidemia, unspecified; F03.A0 Unspecified dementia, mild, without behavioral disturbance, psychotic disturbance, mood disturbance, and anxiety; I12.9 Hypertensive chronic kidney disease with stage 1 through stage 4 chronic kidney disease, or unspecified chronic kidney disease; N18.9 Chronic kidney disease, unspecified; I25.2 Old myocardial infarction; I69.320 Aphasia following cerebral infarction; N40.0 Benign prostatic hyperplasia without lower urinary tract symptoms; G40.909 Epilepsy, unspecified, not intractable, without status epilepticus; Z79.01 Long term (current) use of anticoagulants; Z79.899 Other long term (current) drug therapy; Z88.5 Allergy status to narcotic agent; Z82.49 Family history of ischemic heart disease and other diseases of the circulatory system
CPT/HCPCS: 96374; 99285; 36415; 93005; 80053; 80048; 83735; 84484 ×2; 85025 ×2; 85610; 85730; 71046; 74177; G0378 ×2; J2270; Q9967